=== PATIENT | male | born 1965 | race Caucasian/White ===

== ENCOUNTER 2016-07-31 06:59 | Emergency (ER) ==
[2016-07-31 07:04] VITALS: BP 132/88; TEMP 97.9; BMI 31.9
--- NOTE | 2016-07-31 07:12 | ED.PDOC ---
General ED Provider: Dr. TAWANDA MCMAHON JR Chief Complaint: Body Fluid Exposure Stated Complaint: at work at [employer] on 07/28/16--catheter from pt had come apart while he was near bed and splashed onto his uniform and rt side of neck/upper chest--he then changed clothing--just recently was informed that the pt was positive for hep c.[End]97.9 79 20 97% 132/88 body exposure[End] Time Seen by Physician: 07:41 Mode of Arrival: Walk-In Information Source: Patient Exam Limitations: No limitations Primary Care Provider: JOI LOUISE Nursing and Triage Documentation Reviewed and Agree: No Review of Systems - Review Of Systems Constitutional: Reports: No symptoms All Other Systems: Other Past Medical History - Past Medical History Previously Healthy: Yes Endocrine: Reports: Dyslipidemia Cardiovascular: Reports: None Respiratory: Reports: None Hematological: Reports: None Gastrointestinal: Reports: None Genitourinary: Reports: None Neuro/Psych: Reports: None, Other Musculoskeletal: Reports: None Cancer: Reports: None Other Pertinent Past Medical History: APPENDECTOMY, BILATERAL CARPAL TUNNEL chol - Surgical History General Surgical History: Reports: Appendectomy, Orthopedic (BILATERAL CARPAL TUNNEL ) - Family History Family History: Reports: None - Social History Smoking Status: Never smoker Hx Substance Use: No Alcohol Screening: None Physical Exam - Physical Exam Appearance: Well-appearing, Obese Neck: Supple Respiratory: Airway patent Skin: Warm, Dry, Normal color Psychiatric: Affect appropriate Critical Care Note - Critical Care Note Total Time (mins): 0 Course - Course Orders, Labs, Meds: Orders Category Date Time Status MISCELLANEOUS SEND OUT Stat LAB 07/31/16 07:23 Ordered Vital Signs: Temp Pulse Resp BP Pulse Ox 07/31/16 06:59 97.9 F 79 20 132/88 97 Departure - Departure Time of Disposition: 07:43 Disposition: HOME SELF-CARE Discharge Problem: Employee exposure to body fluids Instructions: Postexposure Prophylaxis (ED) Condition: Good Pt referred to PMD for follow-up: Yes Additional Instructions: recheck PMD routine follow up follow up with employee health for testing Allergies/Adverse Reactions: Allergies No Known Allergies Allergy (Verified 07/31/16 07:06) Home Medications: Ambulatory Orders Dextroamphetamine/Amphetamine [Adderall Xr 30 mg Capsule] 30 mg PO DAILY Aspirin [Aspirin EC] 81 mg PO DAILYWM 07/31/16
== END 2016-07-31 07:50 | disposition home or self-care (01) ==
LOC: ED 06:59
DX: Z77.21 Contact with and (suspected) exposure to potentially hazardous body fluids (principal); Z20.5 Contact with and (suspected) exposure to viral hepatitis; Y99.0 Civilian activity done for income or pay; Y92.239 Unspecified place in hospital as the place of occurrence of the external cause
CPT/HCPCS: 36415; 99283

== ENCOUNTER 2016-09-19 22:14 | Outpatient (CLI) | END 2016-09-19 22:15 | disposition home or self-care (01) | LOC: LAB 22:14 | PROVIDERS: ATTEND General Practice | DX: T75.89XA Other specified effects of external causes, initial encounter (principal) | CPT/HCPCS: 36415; 86592; 86701 ==

== ENCOUNTER 2016-10-23 15:04 | Outpatient (CLI) | END 2016-10-23 15:05 | disposition home or self-care (01) | LOC: LAB 15:04 | PROVIDERS: ATTEND General Practice | DX: Z77.21 Contact with and (suspected) exposure to potentially hazardous body fluids (principal) | CPT/HCPCS: 36415 ==